=== PATIENT | female | born 1995 | race Caucasian/White ===

== ENCOUNTER 2016-09-12 20:39 | Emergency (ER) | payer MEDICAID ==
[2016-09-12 20:51] VITALS: BP 138/88
== END 2016-09-12 22:47 | disposition left against medical advice (07) ==
LOC: ED 20:39
DX: W57.XXXA Bitten or stung by nonvenomous insect and other nonvenomous arthropods, initial encounter (principal); Y93.9 Activity, unspecified; Y92.9 Unspecified place or not applicable; Z53.21 Procedure and treatment not carried out due to patient leaving prior to being seen by health care provider

== ENCOUNTER 2016-10-17 13:41 | Emergency (ER) | payer MEDICAID ==
[2016-10-17 13:49] VITALS: BP 115/73
[2016-10-17] MEDS ORDERED: Albuterol 2.5 MG/3 ML NEB.SOL* (0.083%) INH ONE (14:00)
--- NOTE | 2016-10-17 14:27 | UC ---
Claudia Carter Rebecca, scribed for Kateryna Mayers MD on 10/17/16 at 1401 . Asthma HPI - HPI Summary HPI Summary: Pt is a 21 y/o F who presents to [facility] c/o SOB secondary to asthma exacerbation for 3 days. Believes that her asthma has been aggravated by a recent cold. Additionally c/o nasal congestion, productive cough, fever, DEUTSCH and midsternal CP. Additionally notes lightheadedness and throat pain since yesterday morning. Sx aggravated and alleviated by nothing, mostly unchanged by albuterol inhaler, last used at 0900. Denies nausea. Confirms she has been waking up repeatedly at night due to sx. SHx diffuse household cigarette exposure. PMHx asthma for which she uses an albuterol inhaler and a nebulizer but her nebulizer is at home, out of town. Has been using her albuterol inhaler TID to treat current sx. Does not have a steroid inhaler. Confirms she has been previously hospitalized at [facility] for asthma. - History of Current Complaint Chief Complaint: UCRespiratory Stated Complaint: SOB ASTHMA Time Seen by Provider: 10/17/16 13:49 Hx Obtained From: Patient Hx Last Menstrual Period: mirena Onset/Duration: Lasting Days - 3 days, Still Present Current Severity: Moderate Pain Intensity: 6 Pain Scale Used: 0-10 Numeric Location/Character: Cough (Productive) Aggravating: Nothing Alleviating: Nothing Associated Signs and Symptoms: Positive: Chest Pain - midsternal, Shortness of Breath - Allergy/Home Medications Allergies/Adverse Reactions: Allergies Allergy/AdvReac Type Severity Reaction Status Date / Time No Known Allergies Allergy Verified 09/12/16 20:52 PMH/Surg Hx/FS Hx/Imm Hx Previously Healthy: No Respiratory History: Asthma, Other Other Respiratory History: Allergies Psychological History: Bipolar Disorder - Surgical History Surgical History: Yes Surgery Procedure, Year, and Place: tonsils - Family History Known Family History: Positive: Respiratory Disease - asthma - Social History Alcohol Use: Occasionally Substance Use Type: None Smoking Status (MU): Never Smoked Tobacco Household Exposure Type: Cigarettes Review of Systems Constitutional: Fever - subjective, temp not taken Skin: Negative Eyes: Negative ENT: Sore Throat, Sinus Congestion Respiratory: Shortness Of Breath, Cough - productive Cardiovascular: Chest Pain - midsternal Gastrointestinal: Negative Genitourinary: Negative Motor: Negative Neurovascular: Negative Musculoskeletal: Negative Neurological: Headache, Other - Lightheadedness Psychological: Negative All Other Systems Reviewed And Are Negative: Yes Physical Exam Triage Information Reviewed: Yes Appearance: No Pain Distress, Ill-Appearing - looks mildly unwell, congested. Vital Signs: Initial Vital Signs Temp 99 F 10/17/16 13:46 Pulse 90 10/17/16 13:46 Resp 18 10/17/16 13:46 BP 115/73 10/17/16 13:46 Pulse Ox 100 10/17/16 13:46 ENT: Positive: Pharynx normal - past tonsillectomy Dental Exam: Normal Neck: Positive: Supple, Nontender, No Lymphadenopathy Respiratory: Positive: Decreased breath sounds - to both bases, Wheezing, Expiration - prolonged Cardiovascular: Positive: RRR, No Murmur Abdomen Description: Positive: Nontender, No Organomegaly Musculoskeletal Exam: Normal Psychological Exam: Other - flat affect Skin Exam: Normal Re-Evaluation - Re-Evaluation First Eval Re-Evaluation Time: 14:20 Change: Improved - improved air entry with use of neb. Asthma Course/Dx - Course Course Of Treatment: addition of flovent for control of asthma. - Differential Dx/Diagnosis Provider Diagnoses: asthma exacerbation. Discharge - Discharge Plan Condition: Stable Disposition: HOME Prescriptions: Fluticasone HFA 220 mcg(NF) [Flovent HFA 220 Mcg(NF)] 2 puff INH BID #1 mdi Patient Education Materials: Asthma (ED) Referrals: Non Staff,Doctor [Medical Doctor] - Additional Instructions: Begin use of flovent 2 puffs twice daily to help to control your asthma. This is a steroid inhaler that will decrease inflammation. Rinse your mouth after using the inhaler and spit out the water. Continue using albuterol as needed, up to 4 times per day for the next several days. Using the spacer with both inhalers will improve getting the medication into your lungs. Continue use of singulair and zyrtec. Follow up with your primary care doctor in 5 to 7 days to ensure that you are improving. At this time, you do not need an antibiotic. The documentation as recorded by the Claudia padgett Rebecca accurately reflects the service I personally performed and the decisions made by me, Kateryna Mayers MD.
== END 2016-10-17 14:38 | disposition home or self-care (01) ==
LOC: UCEAST 13:41
DX: J45.901 Unspecified asthma with (acute) exacerbation (principal)
CPT/HCPCS: 99212; G0463